=== PATIENT | male | born 1935 | race Caucasian/White ===

== ENCOUNTER → 2018-07-02 | Outpatient (CLI) | payer MEDICARE, OTHER | END | disposition home or self-care (01) | LOC: CVU 10:39 | PROVIDERS: ATTEND Internal Medicine Cardiovascular Disease | DX: I08.1 Rheumatic disorders of both mitral and tricuspid valves (principal); Z87.891 Personal history of nicotine dependence; Z85.46 Personal history of malignant neoplasm of prostate | CPT/HCPCS: 93306 ==

== ENCOUNTER → 2018-10-30 | Outpatient (CLI) | payer MEDICARE, OTHER ==
[~2018-10-30] MED LIST: AMLO-150 PO; ASPI-496 PO; DOXY100T PO; LOSA100T7 PO
[2018-10-30 09:39] LABS: INTERNATIONAL NORMALIZED RATIO 0.98 (0.93-1.1); PROTHROMBIN TIME 10.4 Seconds (9.6-11.5)
[2018-10-30 09:42] LABS: MICROSCOPIC AUTO
[2018-10-30 09:43] LABS: CULTURE INDICATED? YES
[2018-10-30 09:57] LABS: BASOPHILS # (AUTO) 0.03 x10^3/uL (0-0.1); BASOPHILS % (AUTO) 1 % (0-1); EOSINOPHILS # (AUTO) 0.17 x10^3/uL (0-0.4); EOSINOPHILS % (AUTO) 3 % (1-7); LYMPHOCYTES # (AUTO) 1.01 x10^3/uL (1-3.4); LYMPHOCYTES % (AUTO) 18 % (22-44); MD MORPH REVIEW ONLY; MEAN CORPUSCULAR HEMOGLOBIN 21.2 pg (27.5-34.5); MEAN CORPUSCULAR HGB CONC 30.6 g/dL (33.2-36.2); MEAN CORPUSCULAR VOLUME 69.1 fL (81-97); MEAN PLATELET VOLUME 7.8 fL (7.4-10.4); MONOCYTES # (AUTO) 0.36 x10^3/uL (0.2-0.8); MONOCYTES % (AUTO) 6 % (2-9); NEUTROPHILS # (AUTO) 4.22 x10^3/uL (1.8-6.8); NEUTROPHILS % (AUTO) 73 % (42-75); PLATELET COUNT 166 x10^3/uL (130-400); RED BLOOD COUNT 5.57 x10^6/uL (4.38-5.82)
[2018-10-30 10:01] LABS: ANISOCYTOSIS 1+; MICROCYTOSIS 1+
[2018-10-30 10:12] LABS: HYPOCHROMIA 1+; POLYCHROMASIA 1+
[2018-10-30 10:13] LABS: <PLATELET ESTIMATE> ADEQUATE; <PLT MORPHOLOGY> NORMAL PLT MORPH
[2018-10-30 10:29] LABS: ANION GAP 7 mmol/L (5-15); CHLORIDE 104 mmol/L (98-107)
[2018-10-30 10:32] LABS: ALANINE AMINOTRANSFERASE 22 U/L (12-78); ALKALINE PHOSPHATASE 51 U/L (45-117); BILIRUBIN,TOTAL 1.9 mg/dL (0.2-1.0); CREATININE 1.28 mg/dL (0.7-1.3); TOTAL PROTEIN 8.2 g/dL (6.4-8.2)
== END | disposition home or self-care (01) ==
LOC: STAR 08:21
PROVIDERS: ATTEND Neurological Surgery
DX: Z01.818 Encounter for other preprocedural examination (principal); M48.56XA Collapsed vertebra, not elsewhere classified, lumbar region, initial encounter for fracture
CPT/HCPCS: 36415; 80053; 81001; 85025; 85610; 85730; 87086; 93005

== ENCOUNTER 2018-11-10 07:52 | Day surgery (SDC) | payer MEDICARE, OTHER ==
[~2018-11-10] VITALS: Ht 172.7 cm; Wt 80.0 kg
[~2018-11-10 07:52] MED LIST changes: +LOSA100T14 PO; -LOSA100T7 PO
[2018-11-10] MEDS ORDERED: LACTATED RINGERS 1,000 ML IV SCH (08:17)
[2018-11-10] MEDS ORDERED: MIDAZOLAM 1 MG/ML, 2ML ONE (08:19)
[2018-11-10] MEDS ORDERED: FENTANYL PF 100 MCG/2ML ONE (08:19)
[2018-11-10] MEDS ORDERED: ONDANSETRON ODT 8 MG PO ONE (08:30)
[2018-11-10] MEDS ORDERED: ACETAMINOPHEN 500 MG TABLET PO ONE (08:30)
[2018-11-10] MEDS ORDERED: LIDOCAINE-MPF 1%, 2ML INFIL ONE (08:30)
[2018-11-10] MEDS ORDERED: hydrALAzine 20 MG/ML, 1ML IV PRN (09:00)
[2018-11-10] MEDS ORDERED: OXYcodone 5 MG/5 ML ORAL.SOL UDC PO PRN (09:00)
[2018-11-10] MEDS ORDERED: MORPHINE SULFATE 4 MG/ML, 1ML IVPush PRN (09:00)
[2018-11-10] MEDS ORDERED: METOCLOPRAMIDE 5 MG/ML, 2ML IV PRN (09:00)
[2018-11-10] MEDS ORDERED: MEPERIDINE/PF 25MG/0.5ML IVPush PRN (09:00)
[2018-11-10] MEDS ORDERED: FENTANYL PF 100 MCG/2ML IV PRN (09:00)
[2018-11-10] MEDS ORDERED: LABETALOL 5MG/ML, 20ML IV PRN (09:00)
[2018-11-10] MEDS ORDERED: BUPIVACAINE/PF-EPI 0.5% 1:200K ONE (09:37)
[2018-11-10] MEDS ORDERED: SUCCINYLCHOLINE 20 MG/ML, 10ML ONE (11:15)
[2018-11-10] MEDS ORDERED: PROPOFOL 10 MG/ML, 20ML ONE (11:15)
[2018-11-10] MEDS ORDERED: EPHEDRINE 50 MG/ML, 1ML ONE (11:15)
[2018-11-10] MEDS ORDERED: ROCURONIUM 10MG/ML,5ML ONE (11:15)
[2018-11-10] MEDS ORDERED: CEFAZOLIN 1,000 MG ONE (11:15)
[2018-11-10] MEDS ORDERED: DEXAMETHASONE 4 MG/ML, 1ML ONE (11:15)
[2018-11-10] MEDS ORDERED: PHENYLEPHRINE 10 MG/ML ONE (11:15)
[2018-11-10] MEDS ORDERED: GLYCOPYRROLATE 0.2MG/1ML, 5ML ONE (11:15)
== END 2018-11-10 15:15 | disposition home or self-care (01) ==
LOC: OUT 07:52
PROVIDERS: ATTEND Neurological Surgery
DX: M48.56XA Collapsed vertebra, not elsewhere classified, lumbar region, initial encounter for fracture (principal); I10 Essential (primary) hypertension; D64.9 Anemia, unspecified; Z85.46 Personal history of malignant neoplasm of prostate; Z98.890 Other specified postprocedural states; Z79.82 Long term (current) use of aspirin; Z72.89 Other problems related to lifestyle
CPT/HCPCS: 22514; 72100; 88307; 88311; C1713; J0330; J0690; J1100; J2250; J2370; J2704; J3010; J3490; J7120; Q0162

== ENCOUNTER 2019-03-15 17:21 | Emergency (ER) | payer MEDICARE, OTHER ==
[~2019-03-15] VITALS: Ht 177.8 cm; Wt 75.0 kg
[2019-03-15] MEDS ORDERED: DIPH,PERTUSS(ACELL),TET VAC/PF 0.5 ML IM-VACC ONE ×2 (18:00→18:12)
[2019-03-15] MEDS ORDERED: HYDROcodone/APAP 5/325 TABLET ONE (18:11)
--- NOTE | 2019-03-15 18:25 | NUR ---
PT NOTED TO HAVE ABRASIONS RIGHT SIDE OF FACE AND NOSE AND ABRASIONS TO 3RD DIGIT RIGHT AND LEFT HAND WITH SMALL LACERATION INSIDE OF LIP S/P MECHANICAL FALL ONTO ASPHALT. MEDICATED FOR PAIN PER ORDERS. FAMILY AT BEDSIDE
[2019-03-15] MEDS ORDERED: HYDROcodone/APAP 5/325 TABLET PO ONE (18:30)
[2019-03-15] MEDS ORDERED: BACITRACIN ZINC OINT 500U/GM, 0.9 GM ONE (18:43)
--- NOTE | 2019-03-15 18:58 | NUR ---
REPORT RECIEVED FROM LYNN PAINTER.
[2019-03-15 20:19] VITALS: BP 151/82
--- NOTE | 2019-03-15 20:19 | NUR ---
Patient/Caregiver given discharge instructions and they have confirmed that they understand the instructions. Patient ambulatory with steady gait.
[2019-03-16] MEDS ORDERED: CHOL200052 PO (13:50)
== END 2019-03-15 20:21 | disposition home or self-care (01) ==
LOC: ED 19:11
DX: S02.2XXB Fracture of nasal bones, initial encounter for open fracture (principal); I10 Essential (primary) hypertension; Z87.891 Personal history of nicotine dependence; W18.39XA Other fall on same level, initial encounter; Y93.89 Activity, other specified; Y92.009 Unspecified place in unspecified non-institutional (private) residence as the place of occurrence of the external cause; Y99.8 Other external cause status
CPT/HCPCS: 70450; 70486; 90471; 90715

== ENCOUNTER 2019-03-16 13:06 | Inpatient (IN) | payer MEDICARE, OTHER ==
[~2019-03-16] VITALS: Ht 177.8 cm; Wt 75.2 kg
--- NOTE | 2019-03-16 13:30 | NUR ---
PATIENT BIB [facility] FOR [facility] TODAY WITH NO LOC/HEAD/NECK PAIN, C/O WEAKNESS, SEEN [facility] FOR [facility] WITH NASAL FX PER EMS. NAD NOTED. A+OX4. 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 SPOUSE AT BEDSIDE.
--- NOTE | 2019-03-16 13:32 | NUR ---
BILAT ARM ABRASIONS FROM TODAY AND FACIAL BRUISING FROM YESTERDAYS FALL NOTED.
[2019-03-16] MEDS ORDERED: CHOL200052 PO (13:50)
[2019-03-16 14:06] LABS: BASOPHILS % (AUTO) 0 % (0-1); EOSINOPHILS # (AUTO) 0.02 x10^3/uL (0-0.4); EOSINOPHILS % (AUTO) 0 % (1-7); LYMPHOCYTES # (AUTO) 0.41 x10^3/uL (1-3.4); LYMPHOCYTES % (AUTO) 5 % (22-44); MD NO; MEAN CORPUSCULAR HEMOGLOBIN 21.4 pg (27.5-34.5); MEAN CORPUSCULAR HGB CONC 30.9 g/dL (33.2-36.2); MEAN CORPUSCULAR VOLUME 69.2 fL (81-97); MONOCYTES % (AUTO) 4 % (2-9); NEUTROPHILS # (AUTO) 7.75 x10^3/uL (1.8-6.8); NEUTROPHILS % (AUTO) 91 % (42-75); PLATELET COUNT 129 x10^3/uL (130-400); RED BLOOD COUNT 5.12 x10^6/uL (4.38-5.82); RED CELL DISTRIBUTION WIDTH 16.2 % (9.4-14.8)
[2019-03-16 14:12] LABS: ALBUMIN 3.5 g/dL (3.4-5.0); ANION GAP 7 mmol/L (5-15); CALCIUM 8.9 mg/dL (8.5-10.1); CHLORIDE 105 mmol/L (98-107); CREATININE 0.98 mg/dL (0.7-1.3)
[2019-03-16 14:16] LABS: TROPONIN I 0.018 ng/mL (0.000-0.045)
--- NOTE | 2019-03-16 14:58 | NUR ---
NEW ORDERS, PATIENT TO BE ADMITTED. FAMILY/PATIENT UPDATED ON POC. PATIENT SITTING IN GURNEY, TALKING TO SPOUSE AT BEDSIDE.
[2019-03-16] MEDS ORDERED: SODIUM CHLORIDE FLUSH 10ML SYR IVF PRN (15:00)
--- NOTE | 2019-03-16 15:25 | NUR ---
REPORT TO INOCENCIO PERDOMO.
[2019-03-16] MEDS ORDERED: morphine SULFATE 10 MG/ML, 1ML IVPush PRN (15:30)
[2019-03-16] MEDS ORDERED: DOCUSATE 100 MG CAPSULE PO PRN (15:30)
[2019-03-16] MEDS ORDERED: OXYcodone IR 5MG TABLET PO PRN (15:30)
[2019-03-16] MEDS ORDERED: ACETAMINOPHEN 325 MG TABLET PO PRN (15:30)
[2019-03-16] MEDS ORDERED: POLYETHYLENE GLYCOL 17 GM PACKET PO PRN (15:30)
[2019-03-16] MEDS ORDERED: ONDANSETRON 2MG/ML, 2ML IVPush PRN (15:30)
[2019-03-16] MEDS ORDERED: LIDODERM 5% PATCH TD PRN (15:30)
[2019-03-16] MEDS ORDERED: hydrALAzine 20 MG/ML, 1ML IVPush PRN (15:30)
[2019-03-16] MEDS ORDERED: ENALAPRILAT 1.25 MG/ML, 2ML IVPush PRN (15:30)
--- NOTE | 2019-03-16 15:48 | NUR ---
PATIENT ADMITTED/TRANSFERRED TO HOSPITAL BED UPSTAIRS.
[2019-03-16] MEDS ORDERED: LORazepam 2 MG/ML, 1ML ONE (17:00)
[2019-03-16] MEDS ORDERED: LORazepam 2 MG/ML, 1ML IVPush ONE (17:00)
[2019-03-16 18:03] VITALS: BP 136/68
[2019-03-16] MEDS: ENOXAPARIN 40 MG/0.4 ML SQ SCH (19:43)
[2019-03-16] MEDS: D5%-0.45NACL+KCL 20MEQ 1,000 ML IV SCH (19:43)
[2019-03-17 01:16] VITALS: BP 145/73
[2019-03-17] MEDS: D5%-0.45NACL+KCL 20MEQ 1,000 ML IV SCH (05:02)
[2019-03-17 05:11] LABS: ABSOLUTE RETICS # 0.057 x10^6/uL (0.5-1.5); RED BLOOD COUNT 4.86 x10^6/uL (4.38-5.82); RETICULOCYTE COUNT % 1.17 % (0.5-1.5)
[2019-03-17 05:22] LABS: ANION GAP 5 mmol/L (5-15); CALCIUM 8.5 mg/dL (8.5-10.1); CHLORIDE 109 mmol/L (98-107)
[2019-03-17 05:29] LABS: % IRON SATURATION 12 % (20-55); CREATININE 1.05 mg/dL (0.7-1.3); IRON LEVEL 23 mcg/dL (65-175); TOTAL IRON BINDING CAPACITY 199 mcg/dL (250-450)
[2019-03-17 06:21] LABS: MEAN CORPUSCULAR HEMOGLOBIN 20.4 pg (27.5-34.5); MEAN CORPUSCULAR VOLUME 69.9 fL (81-97); MEAN PLATELET VOLUME 7.8 fL (7.4-10.4); PLATELET COUNT 111 x10^3/uL (130-400); RED BLOOD COUNT 4.91 x10^6/uL (4.38-5.82); RED CELL DISTRIBUTION WIDTH 16.3 % (9.4-14.8)
[2019-03-17 06:24] LABS: BASOPHILS # (AUTO) 0.02 x10^3/uL (0-0.1); BASOPHILS % (AUTO) 0 % (0-1); EOSINOPHILS # (AUTO) 0.11 x10^3/uL (0-0.4); EOSINOPHILS % (AUTO) 2 % (1-7); LYMPHOCYTES # (AUTO) 0.47 x10^3/uL (1-3.4); LYMPHOCYTES % (AUTO) 7 % (22-44); MD SCAN; MONOCYTES # (AUTO) 0.42 x10^3/uL (0.2-0.8); MONOCYTES % (AUTO) 6 % (2-9); NEUTROPHILS # (AUTO) 5.86 x10^3/uL (1.8-6.8); NEUTROPHILS % (AUTO) 85 % (42-75)
[2019-03-17 07:04] LABS: MEAN CORPUSCULAR HGB CONC 30.9 g/dL (33.2-36.2)
[2019-03-17 07:40] VITALS: BP 134/73
[2019-03-17] MEDS: CHOLECALCIFEROL 1,000 UNIT TABLET PO SCH (09:21)
[2019-03-17] MEDS: IRON SUCROSE COMPLEX 100MG/5ML IV SCH (09:33)
[2019-03-17] MEDS: LOSARTAN 50MG TABLET PO SCH (09:33)
[2019-03-17] MEDS: KETOROLAC 30 MG/1 ML IV PRN ×2 (09:33→17:03)
[2019-03-17] MEDS ORDERED: OXYC-302 PO (12:34)
[2019-03-17] MEDS ORDERED: DULO60CA7 PO (12:34)
[2019-03-17] MEDS ORDERED: DIAZ2TAB3 PO (12:36)
[2019-03-17] MEDS ORDERED: TRAM50TA2 PO (12:37)
[2019-03-17] MEDS ORDERED: FOLI-17 PO (12:39)
[2019-03-17] MEDS ORDERED: DOXY100T PO (12:43)
[2019-03-17] MEDS ORDERED: CEPH500T PO (12:43)
[2019-03-17] MEDS ORDERED: CALC-525 PO (12:45)
[2019-03-17 13:58] VITALS: BP 112/61
[2019-03-17] MEDS ORDERED: DIAZEPAM 2 MG TABLET PO PRN (17:30)
[2019-03-17 17:56] LABS: MICROSCOPIC AUTO
[2019-03-17 18:05] LABS: CULTURE INDICATED? YES
[2019-03-17] MEDS ORDERED: DULOXETINE 30 MG CAPSULE.DR ONE (18:12)
[2019-03-17] MEDS: CEPHALEXIN 500 MG CAPSULE PO SCH ×2 (18:15→20:11)
[2019-03-17] MEDS: DULOXETINE 30 MG CAPSULE.DR PO SCH (18:15)
[2019-03-17] MEDS: ACETAMINOPHEN 500 MG TABLET PO SCH ×2 (18:15→23:52)
[2019-03-17 18:36] VITALS: BP 168/68
[2019-03-17] MEDS: ENOXAPARIN 40 MG/0.4 ML SQ SCH (20:11)
[2019-03-18 01:26] VITALS: BP 136/69
[2019-03-18] MEDS: ACETAMINOPHEN 500 MG TABLET PO SCH ×2 (05:11→12:35)
[2019-03-18] MEDS: CEPHALEXIN 500 MG CAPSULE PO SCH ×2 (05:11→12:35)
[2019-03-18] MEDS ORDERED: ACET500T71 PO (08:40)
[2019-03-18] MEDS ORDERED: TRAM50TA2 PO (08:40)
[2019-03-18 08:41] VITALS: BP 156/81
[2019-03-18] MEDS: IRON SUCROSE COMPLEX 100MG/5ML IV SCH (09:00)
[2019-03-18] MEDS ORDERED: DULOXETINE 30 MG CAPSULE.DR PO SCH (09:00)
[2019-03-18] MEDS: DULOXETINE 30 MG CAPSULE.DR PO SCH (09:10)
[2019-03-18] MEDS: CHOLECALCIFEROL 1,000 UNIT TABLET PO SCH (09:10)
[2019-03-18] MEDS: LOSARTAN 50MG TABLET PO SCH (09:11)
== END 2019-03-18 13:14 | disposition home health service (06) | DRG 542 ==
LOC: ED 14:45 → EDIP 14:46 → ED 15:00 → 3NE 15:25 → DCLOUNGE 03-18 12:57
PROVIDERS: ADMIT Internal Medicine; ATTEND Internal Medicine
PROC: 0T9B70Z Drainage of Bladder with Drainage Device, Via Natural or Artificial Opening (ICD-10-PCS; principal; 2019-03-17)
DX: M48.56XA Collapsed vertebra, not elsewhere classified, lumbar region, initial encounter for fracture (principal); J96.01 Acute respiratory failure with hypoxia; I45.2 Bifascicular block; W18.30XA Fall on same level, unspecified, initial encounter; Z87.311 Personal history of (healed) other pathological fracture; D50.9 Iron deficiency anemia, unspecified; D56.3 Thalassemia minor; D69.6 Thrombocytopenia, unspecified; G89.29 Other chronic pain; I10 Essential (primary) hypertension; M48.061 Spinal stenosis, lumbar region without neurogenic claudication; M48.07 Spinal stenosis, lumbosacral region; N31.9 Neuromuscular dysfunction of bladder, unspecified; S00.81XA Abrasion of other part of head, initial encounter; S02.2XXA Fracture of nasal bones, initial encounter for closed fracture; Z80.0 Family history of malignant neoplasm of digestive organs; Z85.46 Personal history of malignant neoplasm of prostate; Z87.891 Personal history of nicotine dependence; Z90.79 Acquired absence of other genital organ(s); W18.39XA Other fall on same level, initial encounter; Y93.89 Activity, other specified; Y92.89 Other specified places as the place of occurrence of the external cause; Y99.8 Other external cause status
CPT/HCPCS: 36415; 70450; 70486; 72148; 80048; 81001; 82040; 82728; 83540; 83550; 84155; 84156; 84165; 84166; 84439; 84443; 84484; 85025; 85045; 87086; 90471; 90715; 93005; 99285; G0378; J1650; J1756; J1885; J2060; J3480